=== PATIENT | female | born 1970 | race Hispanic/Latino ===

== ENCOUNTER 2018-05-05 06:57 | Outpatient (CLI) | payer BC ==
--- NOTE | 2018-05-05 07:52 | ULT ---
RIGHT UPPER QUADRANT ULTRASOUND: INDICATION: Transaminitis. FINDINGS: The patient is status cholecystectomy. There is no focal hepatic lesion identified. There is limite d evaluation of the right upper abdomen due to persistent shadowing from overlying body wall soft tis sues. The common duct is normal at 4-5 mm. IMPRESSION: 1. Status post cholecystectomy. 2. Limited visualization without definite acute process otherwise depicted within the right upper qu adrant. If there is persistent concern, consider followup with CT exam as necessary. POS: BRIANNE
== END 2018-05-05 06:58 | disposition home or self-care (01) ==
LOC: BICULT 06:57
PROVIDERS: ATTEND Internal Medicine
DX: R74.0 Nonspecific elevation of levels of transaminase and lactic acid dehydrogenase [LDH] (principal); Z90.49 Acquired absence of other specified parts of digestive tract
CPT/HCPCS: 76705

== ENCOUNTER 2019-03-09 07:55 | Outpatient (CLI) | payer BC ==
--- NOTE | 2019-03-09 10:14 | MRI ---
Brain MRI with and without contrast: 03/09/2019 COMPARISON: 11/22/2009 HISTORY: Trigeminal pain, right-sided pain, trigeminal neuralgia TECHNIQUE: Multiplanar multisequence MR imaging of the brain obtained with and without contrast using a cranial nerve protocol FINDINGS: The diffusion weighted imaging demonstrates no evidence for acute infarction. The axial FLAIR imaging demonstrates no significant abnormal white matter signal intensity. Thin section T2 weighted imaging through the skull base demonstrate normal signal intensity in the re gion of the cerebellopontine angle, internal auditory canal, cochlea, vestibule, and semicircular canals. The imaged paranasal sinuses/mastoid air cells appear grossly unremarkable on T2-weighted imaging. Ar terial flow voids at the axial level of the skull base appear unremarkable on the T2-weighted imaging. Thin section postcontrast imaging demonstrates no abnormal enhancement in the region of the cerebello pontine angle or internal auditory canal on either side. Artifact limits detailed assessment of the postcontrast imaging at the level of the skull base, particularly on the left. On the whole brain pos tcontrast imaging there is a suggestion of mild increased linear enhancement involving the region of the facial nerve within the lateral aspect of the internal auditory canal on the left with mild in creased enhancement involving the geniculate ganglion. Unfortunately this area is not well assessed on the thin section postcontrast fat-saturated imaging secondary to artifact. In the proper clinical setting, this may signify Roland's palsy. The postcontrast imaging demonstrates no definite abnormal enhancement along the course of the 5th cr anial nerve on either side. IMPRESSION: Questionable mild abnormal enhancement involving the 7th cranial nerve on the left which could signify Roland's palsy in the proper clinical setting. Artifact limits detailed assessment as described above.
[2019-03-09] MEDS ORDERED: Gadobenate Dimeglumine 529 MG/1 ML (20ML VIAL) ONE (13:06)
== END 2019-03-09 07:56 | disposition home or self-care (01) ==
LOC: BICMRI 07:55
PROVIDERS: ATTEND Family Medicine
DX: G50.0 Trigeminal neuralgia (principal); R51 Headache; M79.7 Fibromyalgia
CPT/HCPCS: 70553; 82565; A9577

== ENCOUNTER 2019-05-07 13:54 | Outpatient (CLI) | payer BC ==
--- NOTE | 2019-05-07 15:09 | MRI ---
MRI CERVICAL SPINE WITHOUT CONTRAST: HISTORY: Cervical stenosis of the spinal canal. Neck pain and stiffness. COMPARISON: None. FINDINGS: Appropriate T1 marrow signal intensity of the cervical vertebrae. Cervical spine vertebral body heigh t is maintained. No fracture. No significant STIR hyperintensity to suggest vertebral body edema or ligament injury. The visualized brain parenchyma, cervicomedullary junction, cervical cord and the up per thoracic cord have a normal size and signal intensity. C2-C3: No significant central canal stenosis or significant neural foraminal narrowing. C3-C4: No significant central canal stenosis. Mild right foraminal narrowing due to uncovertebral hyp ertrophy. Left neural foramen is patent. C4-C5: No significant central canal stenosis. Mild bilateral foraminal narrowing due to uncovertebral hypertrophy. C5-C6: Broad-based disk osteophyte complex with a right paracentral component. There is contact upon the right hemicord without cord hyperintensity. At least mild central canal stenosis. Mild right foraminal narrowing due to uncovertebral hypertrophy. Left neural foramen is patent. C6-C7: Broad-based discussed by complex with a midline disc protrusion. Contact upon the subarachnoid space. Subarachnoid space is effaced and there is minimal contact upon the C6 cervical cord without cord hyperintensity. Bilaterally neural foramina are patent. C7-T1: No significant central canal stenosis or significant neural foraminal narrowing. IMPRESSION: Degenerative changes of the cervical spine as detailed above. Transcribed Date/Time: 05/07/2019 3:13 PM
--- NOTE | 2019-05-07 15:53 | MRI ---
MR the lumbar spine without contrast INDICATION: Intervertebral disc disorder with radiculopathy COMPARISON: None. TECHNIQUE: Multiplanar multisequence MR images were obtained of lumbar spine without IV contrast. FINDINGS: Bone marrow: There are small bony hemangioma within L4 and L1. Distal spinal cord and conus: Normal. The conus seen to terminate at L1. Visualized retroperitoneum and paraspinal soft tissues: There is a 1.7 cm T2 hyperintense, T1 hypoint ense lesion in the right adnexa consistent with a small follicular cysts. No lymphadenopathy is evident. Paraspinal soft tissues are normal appearing. Vertebral levels: L5-S1: There is moderate lateral facet joint degenerative change. There is a broad-based bulge. There is no appreciable central canal or neural foraminal narrowing.. L4-5: There is a broad-based bulge with facet hypertrophy that greater on the left inducing mild left neural foraminal narrowing. L3-4: There is a broad-based bulge with [id number] facet joint degenerative change inducing mil d bilateral neural foraminal narrowing, left greater than right. L2-3: There is a broad-based bulge with facet hypertrophy inducing minimal to mild neural foraminal n arrowing without definite impingement L1-L2: There is a broad-based bulge with facet hypertrophy but no appreciable neural foraminal narrow ing. T12-L1: There is a broad-based bulge with a superimposed left paracentral disc protrusion. The protru romana causes some mild effacement of ventral thecal sac without definite cord compression. IMPRESSION: 1. Iaji-[id number] spondylosis of the lumbar spine with multilevel disc bulges and facet osteoarthri tic change. 2. Mild multilevel neural foraminal narrowing as above. 3. Small left paracentral disc protrusion at T12-L1 induces mild effacement of the left ventrolateral subarachnoid space without definite cord compression.
--- NOTE | 2019-05-07 16:02 | RAD ---
Exam: 6 views cervical spine HISTORY: Pain. FINDINGS: On the open-mouth projection, lateral masses of C1 and C2 articulate appropriately. Odontoi d process is obscured Limited evaluation of the cervicothoracic junction on the swimmer's view On the AP projection, no malalignment Lateral neutral, lateral flexion and lateral extension views demonstrate 1.6 mm anterolisthesis of C3 upon C4 in the neutral position and 2.4 mm of anterolisthesis of C3 upon C4 with flexion. Anterolisthesis resolves upon extension. Visualized cervical spine vertebral body heights are maintained and there is no fracture. No preverte bral soft tissue swelling of the predental space is normal There is mild loss of disc space at C5-C6 and C6-C7 IMPRESSION: Degenerative changes and spondylolisthesis as above Transcribed Date/Time: 05/07/2019 4:07 PM
== END 2019-05-07 13:55 | disposition home or self-care (01) ==
LOC: BICMRI 13:54
PROVIDERS: ATTEND Specialist
DX: M48.02 Spinal stenosis, cervical region (principal); M51.16 Intervertebral disc disorders with radiculopathy, lumbar region; M47.816 Spondylosis without myelopathy or radiculopathy, lumbar region; M43.12 Spondylolisthesis, cervical region; M48.061 Spinal stenosis, lumbar region without neurogenic claudication; M51.25 Other intervertebral disc displacement, thoracolumbar region; M47.812 Spondylosis without myelopathy or radiculopathy, cervical region
CPT/HCPCS: 72050; 72141; 72148

== ENCOUNTER 2021-07-18 09:40 | Outpatient (CLI) | payer OTHER | END 2021-07-18 09:41 | disposition home or self-care (01) | LOC: BICRAD 09:40 | PROVIDERS: ATTEND Family Medicine | DX: R05.9 Cough, unspecified (principal); I10 Essential (primary) hypertension; Z86.16 Personal history of COVID-19; Z86.11 Personal history of tuberculosis | CPT/HCPCS: 71046 ==